=== PATIENT | female | born 1945 | race Caucasian/White ===

== ENCOUNTER 2018-07-01 13:01 | Observation (INO) | payer MEDICARE ==
[2018-07-01] MEDS ORDERED: ATORVASTATIN 40 MG TAB PO SCH (19:00)
[2018-07-01] MEDS ORDERED: NITROGLYCERIN SL TABS 0.4 MG TAB SUBLINGUAL PRN (19:00)
[2018-07-01] MEDS ORDERED: MELATONIN 5 MG TABLET PO PRN (19:01)
[2018-07-01] MEDS ORDERED: ACETAMINOPHEN TAB 325 MG TAB PO PRN (19:01)
[2018-07-01] MEDS: OXYMETAZOLINE 0.05% NASL SPRAY 1 SPRAY BOTTLE EA NOSTRIL SCH (20:21)
[2018-07-01] MEDS: amLODIPine 5 MG TAB PO SCH (20:40)
[2018-07-01] MEDS: CHOLECALCIFEROL 1,000 UNIT TAB PO SCH (20:40)
[2018-07-01] MEDS: FUROSEMIDE 20 MG TAB PO SCH (20:40)
[2018-07-01] MEDS: CARVEDILOL 12.5 MG TAB PO SCH (20:41)
[2018-07-01] MEDS: buPROPion XL 300 MG TAB.ER.24H PO SCH (20:41)
[2018-07-01 20:42] LABS: Basophils # (A) 0.1 k/uL (0-0.2); Basophils % (A) 1 %; Eosinophils # (A) 0.2 k/uL (0-0.7); Eosinophils % (A) 4 %; HCT 39.5 % (34.0-46.0); HGB 12.9 gm/dL (11.4-16.0); Lymphocytes # (A) 1.9 k/uL (1.0-4.8); Lymphocytes % (A) 33 %; MCH 29.7 pg (25.0-35.0); MCHC 32.6 g/dL (31.0-37.0); MCV 91.3 fL (80.0-100.0); Mean Platelet Volume 7.3; Monocytes # (A) 0.4 k/uL (0-1.0); Monocytes % (A) 8 %; Neutrophils # (A) 2.8 k/uL (1.3-7.7); Neutrophils % (A) 51 %; Platelet Count 175 k/uL (150-450); RBC 4.33 m/uL (3.80-5.40); RDW 14.2 % (11.5-15.5); WBC 5.6 k/uL (3.8-10.6)
[2018-07-01 20:54] LABS: INR 0.9 (<1.2); Prothrombin Time 10.2 sec (9.0-12.0)
[2018-07-01 21:26] LABS: Albumin 3.6 g/dL (3.5-5.0); Calcium 9.5 mg/dL (8.4-10.2); Magnesium 2.2 mg/dL (1.6-2.3); Potassium 4.3 mmol/L (3.5-5.1); Total Bilirubin 0.5 mg/dL (0.2-1.3); Total Protein 5.9 g/dL (6.3-8.2)
[2018-07-02] MEDS: LEVOTHYROXINE 100 MCG TAB PO SCH (06:07)
[2018-07-02] MEDS ORDERED: SODIUM CHLORIDE 0.9% 1,000 ML in EMPTY BAG 1 BAG IV ONE (08:13)
[2018-07-02] MEDS ORDERED: NITROGLYCERIN SL TABS 0.4 MG TAB SUBLINGUAL PRN (08:13)
[2018-07-02] MEDS ORDERED: ALPRAZolam 0.25 MG TAB PO PRN (08:13)
[2018-07-02] MEDS ORDERED: ALPRAZolam 0.5 MG TAB PO PRN (08:13)
[2018-07-02] MEDS ORDERED: ATORVASTATIN 80 MG TAB PO STA (08:16)
[2018-07-02] MEDS ORDERED: ASPIRIN 325 MG TAB PO STA (08:16)
[2018-07-02] MEDS: CHOLECALCIFEROL 1,000 UNIT TAB PO SCH (08:39)
[2018-07-02] MEDS: CARVEDILOL 12.5 MG TAB PO SCH (08:40)
[2018-07-02] MEDS: buPROPion XL 300 MG TAB.ER.24H PO SCH (08:41)
[2018-07-02] MEDS: FUROSEMIDE 20 MG TAB PO SCH (08:41)
[2018-07-02] MEDS: SODIUM CHLORIDE 0.9% 1,000 ML IV SCH ×2 (08:41→22:18)
--- NOTE | 2018-07-02 09:09 | CONS ---
CONSULTATION CHIEF COMPLAINT: Chest pain. Lali Rehman is a 72-year-old lady with history of cardiomyopathy, congestive heart failure, valvular heart disease and AICD who I see regularly in the outpatient setting. Comes in complaining of precordial chest pain that radiated to her back. She has valvular heart disease and is supposed to undergo a transesophageal echo later this week. She has mild to moderate intensity chest pain at rest without diaphoresis or shortness of breath. The pain has gradually resolved. Her EKG shows sinus rhythm with nonspecific ST-T wave changes and cardiac enzymes have been negative. We have never been able to get hold of her outpatient records. She has chronic renal insufficiency. Given the symptoms suggestive of unstable angina, I advised the patient to undergo cardiac catheterization. I am going to hydrate her prior to the cath. Patient will also undergo a transesophageal echo to evaluate the valvular heart disease. PAST MEDICAL HISTORY: Significant for cardiomyopathy with congestive heart failure, dyslipidemia, AICD, and coronary artery disease. CURRENT MEDICATIONS: Include Wellbutrin 300 mg daily, Norvasc 5 q. daily, levothyroxine, Lasix 20 mg daily, vitamin D, carvedilol, calcitriol and Lipitor. Patient is allergic to CODEINE and SULFA. FAMILY HISTORY: Negative for premature coronary artery disease. SOCIAL HISTORY: Negative for current smoking, EtOH abuse, or drug abuse. REVIEW OF SYSTEMS: HEENT: Unremarkable. CARDIAC: As described above. RESPIRATORY: Negative. GI: Negative. GENITOURINARY: Negative. ALLERGY/IMMUNOLOGY: Negative. SKIN: Negative. MUSCULOSKELETAL: Significant for arthritis. PSYCHOSOCIAL: Negative. ENDOCRINE: Negative. CONSTITUTIONAL: Negative. ONCOLOGICAL: Negative Rest of the system review is not relevant. PHYSICAL EXAMINATION: On exam, patient is comfortable at rest. Afebrile. Vital signs are stable. There is no jugular venous distention. Carotid upstroke is normal. There is no bruit. Chest exam reveals good air entry bilaterally. Heart exam reveals first and second heart sounds and a systolic murmur at the apex. Abdomen is soft. Exam of extremities did not reveal any edema. Peripheral pulses are felt. LABS: Show that the BUN is 27, creatinine is 1.3. Potassium is 4.3. Troponin is 0.012, hemoglobin is 12.9, platelet count is 175. ASSESSMENT AND PLAN: 1. Unstable angina. 2. Mitral regurgitation. 3. Aortic regurgitation. 4. Cardiomyopathy. 5. Renal insufficiency. PLAN: I am going to hydrate her. I advised her to undergo cardiac catheterization. She understands risks, benefits. She will also undergo a transesophageal echo. NIDHI / DYANAN: [id number] /
[2018-07-02] MEDS ORDERED: CALCITRIOL 0.25 MCG CAP PO SCH (12:00)
[2018-07-02] MEDS: amLODIPine 5 MG TAB PO SCH (14:29)
--- NOTE | 2018-07-02 17:11 | P.HPIM ---
History of Present Illness H&P Date: 07/02/18 Chief Complaint: Chest pain Mrs. Rehman is a 72-year-old female with a past medical history of congestive heart failure, valvular heart disease, AICD, CK D stage III transferred from [facility] for ongoing chest pain. Patient states that she took a shower and was blow drying head when she felt a squeezing type of chest pain in the precordial area. The patient states that the pain radiated to her upper neck and jaw area. Associated with mild diaphoresis and she also felt dizzy at that point of time. So the patient went to [facility], from days she has been transferred to [facility], as has used car make ready worker Dr. Rowe is here. Currently the patient is chest pain-free. She had EKG showing nonspecific ST-T wave changes and her troponins have been negative. She mentions that Dr. Rowe has a plan to do a JOSHUA, to evaluate her valvular heart disease, she was scheduled to get back this Monday. Patient denies having any orthopnea or PND. At baseline she can walk a flight of stairs, without getting short of breath. She denies having any fevers chills or rigors. No cough or difficulty in breathing. No abdominal pain nausea vomiting or diarrhea. No dysuria or hematuria. No loss of consciousness. No headaches, no blurring of vision, no neck stiffness. No weakness of her extremities. No recent travel. Review of systems are negative except for mentioned above. Past Medical History Past Medical History: Heart Failure, Renal Disease Additional Past Medical History / Comment(s): Hiatal Hernia, CKD III, History of Any Multi-Drug Resistant Organisms: None Reported Past Surgical History: Pacemaker Past Anesthesia/Blood Transfusion Reactions: No Reported Reaction Type of Cardiac Device: Permanent Pacemaker Device Placement Date:: 2008 Past Psychological History: Bipolar Smoking Status: Never smoker - Past Family History Father Family Medical History: Cancer Additional Family Medical History / Comment(s): Lung CA, pacemaker. Mother Family Medical History: Cancer, Hyperlipidemia Additional Family Medical History / Comment(s): Colon CA, Pacemaker Medications and Allergies Home Medications Medication Instructions Recorded Confirmed Type Atorvastatin [Lipitor] 40 mg PO DAILY 07/01/18 07/01/18 History Calcitriol 0.5 mcg PO MO 07/01/18 07/01/18 History Carvedilol 50 mg PO DAILY 07/01/18 07/01/18 History Cholecalciferol [Vitamin D3 (25 5,000 unit PO DAILY 07/01/18 07/01/18 History Mcg = 1000 Iu)] Furosemide [Lasix] 20 mg PO DAILY 07/01/18 07/01/18 History Levothyroxine Sodium 100 mcg PO DAILY 07/01/18 07/01/18 History Oxymetazoline 0.05% Nasl [place] 2 spray EA NOSTRIL HS 07/01/18 07/01/18 History [Afrin 0.05% Nasal [place]] amLODIPine [Norvasc] 5 mg PO DAILY 07/01/18 07/01/18 History buPROPion XL [Wellbutrin XL] 300 mg PO DAILY 07/01/18 07/01/18 History Allergies Allergy/AdvReac Type Severity Reaction Status Date / Time codeine Allergy Itching Verified 07/01/18 16:37 Sulfa (Sulfonamide Allergy Itching Verified 07/01/18 16:37 Antibiotics) Physical Exam Vitals: Vital Signs Temp Pulse Resp BP BP Pulse Ox 07/02/18 16:00 98.3 F 60 16 139/82 96 07/02/18 11:59 60 18 07/02/18 11:30 98.4 F 60 18 119/79 97 07/02/18 08:00 60 18 07/02/18 07:00 97.8 F 60 18 112/72 97 07/02/18 04:00 97.6 F 60 15 103/76 97 07/02/18 00:00 97.7 F 60 15 113/72 98 07/01/18 20:00 60 15 07/01/18 19:02 98.3 F 60 15 135/76 97 Intake and Output 07/02/18 07/02/18 07/02/18 06:59 14:59 22:59 Intake Total 240 Balance 240 Intake: Oral 240 Other: Voiding Method Toilet Toilet Toilet # Voids 1 - GEN. APPEARANCE: alert, in no apparent distress HEENT - no pallor. No icterus. NECK EXAM: normal inspection. Absent: tenderness, meningismus, full ROM, lymphadenopathy RESPIRATORY EXAM: Bilateral breath sounds are positive. No wheeze or crackles. CARDIOVASCULAR EXAM: Diastolic murmur heard. S1 and S2 heard. GI/ABDOMINAL EXAM: soft, normal bowel sounds. Absent: distended, tenderness, guarding, rebound, rigid EXTREMITIES EXAM: No edema. NEUROLOGICAL EXAM: alert, oriented X3, no focal deficits. PSYCHIATRIC EXAM: normal affect, normal mood SKIN EXAM: warm, dry, intact, normal color. Absent: rash Results CBC & Chem 7: 07/01/18 20:29 07/01/18 20:29 Labs: Abnormal Lab Results - Last 24 Hours (Table) 07/01/18 Range/Units 20:29 Carbon Dioxide 31 H (22-30) mmol/L BUN 27 H (7-17) mg/dL Creatinine 1.39 H (0.52-1.04) mg/dL Total Protein 5.9 L (6.3-8.2) g/dL Thrombosis Risk Factor Assmnt - Choose All That Apply Each Risk Factor Represents 2 Points: Age 61-74 years Thrombosis Risk Factor Assessment Total Risk Factor Score: 2 Thrombosis Risk Factor Assessment Level: Low Risk Assessment and Plan Assessment: ASSESSMENT Unstable angina Congestive heart failure- unknown whether systolic or diastolic Valvular heart disease CK D stage III PLAN: Patient is currently chest pain-free. Had EKG and troponins within normal limits. Dr. Rowe evaluated the patient and she is scheduled for a cardiac cath and a JOSHUA or tomorrow. Patient has been started on IV fluids, in preparation for her Tomorrow, due to her chronic kidney disease. The treatment plan was discussed in detail with the patient. Further recommendations to follow depending on the progress of the patient.
[2018-07-02] MEDS: OXYMETAZOLINE 0.05% NASL SPRAY 1 SPRAY BOTTLE EA NOSTRIL SCH (20:01)
[2018-07-03] MEDS: LEVOTHYROXINE 100 MCG TAB PO SCH (05:52)
[2018-07-03] MEDS: CARVEDILOL 12.5 MG TAB PO SCH (07:51)
[2018-07-03] MEDS: amLODIPine 5 MG TAB PO SCH (07:51)
[2018-07-03] MEDS: buPROPion XL 300 MG TAB.ER.24H PO SCH (07:51)
[2018-07-03] MEDS: ATORVASTATIN 40 MG TAB PO SCH (07:51)
[2018-07-03] MEDS: CHOLECALCIFEROL 1,000 UNIT TAB PO SCH (07:52)
[2018-07-03] MEDS: FUROSEMIDE 20 MG TAB PO SCH (07:52)
[2018-07-03] MEDS ORDERED: ASPIRIN 325 MG TAB PO STA (08:42)
[2018-07-03] MEDS ORDERED: BENZOCAINE SPRAY 1 CAN MUCOUS MEM ONE ×2 (10:45→10:50)
[2018-07-03] MEDS ORDERED: IV FLUID CONTINUATION 1,000 ML IV ONE ×2 (10:51→12:05)
[2018-07-03] MEDS ORDERED: MIDAZOLAM (PF) 2 MG/2 ML VIAL IVP ONE (10:57)
[2018-07-03] MEDS ORDERED: fentaNYL (PF) 50 MCG/ML 2 ML AMP IVP ONE (11:00)
[2018-07-03] MEDS ORDERED: LIDOCAINE 1% INJ 10MG/ML (20 ML MDV) SQ ONE (11:52)
[2018-07-03] MEDS ORDERED: IOPAMIDOL-370 125ML BTL INJ ONE (12:04)
[2018-07-03] MEDS ORDERED: RX INFO: IV CONTRAST WAS GIVEN 1 EACH MISC MISCELLANE PRN (12:18)
[2018-07-03] MEDS: SODIUM CHLORIDE 0.9% 1,000 ML IV SCH (12:36)
--- NOTE | 2018-07-03 13:29 | P.PN ---
Subjective Mrs. Rehman is a 72-year-old female with a past medical history of congestive heart failure, valvular heart disease, AICD, CK D stage III transferred from [facility] for ongoing chest pain. Patient states that she took a shower and was blow drying head when she felt a squeezing type of chest pain in the precordial area. The patient states that the pain radiated to her upper neck and jaw area. Associated with mild diaphoresis and she also felt dizzy at that point of time. 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 Currently the patient is chest pain-free. She had EKG showing nonspecific ST-T wave changes and her troponins have been negative. She mentions that Dr. Rowe has a plan to do a JOSHUA, to evaluate her valvular heart disease, she was scheduled to get back this Monday. Patient denies having any orthopnea or PND. At baseline she can walk a flight of stairs, without getting short of breath. She denies having any fevers chills or rigors. No cough or difficulty in breathing. No abdominal pain nausea vomiting or diarrhea. No dysuria or hematuria. No loss of consciousness. No headaches, no blurring of vision, no neck stiffness. No weakness of her extremities. No recent travel. subjective 07/03/2018 pt had cardiac catheterization today , which was unremarkable, JOSHUA could not be done , but cardiology team will able to look at her valves during cardiac cath which were unremarkable. Patient after the procedure she was lying in bed comfortable, fully awake and oriented. No chest pain or dyspnea. Her right groin cath site looks stable with no hematoma and the wound is small. She still feels generalized fatigue. at bedside. Patient has history of. Total hernia and she follow up with Dr. Reyes her PCP. Patient told me earlier this year she had scoped for upper GI which showed reflux disease and he is still hernia as per patient. patient and were instructed to follow up with her PCP and GI upon discharge and they agree . Objective - Vital Signs Vital signs: Vital Signs Temp 97.5 F L 07/03/18 12:30 Pulse 60 07/03/18 12:30 Resp 18 07/03/18 12:30 BP 151/70 07/03/18 12:30 Pulse Ox 100 07/03/18 12:30 Intake & Output 07/02/18 07/03/18 07/03/18 18:59 06:59 18:59 Intake Total 150 Balance 150 Intake: IV 150 Other: Voiding Method Toilet Toilet Toilet # Voids 1 - Exam GENERAL: The patient is alert and oriented x3, not in any acute distress. Well developed, well nourished. HEENT: Pupils are round and equally reacting to light. EOMI. No scleral icterus. No conjunctival pallor. Normocephalic, atraumatic. No pharyngeal erythema. No thyromegaly. CARDIOVASCULAR: S1 and S2 present. No murmurs, rubs, or gallops. PULMONARY: Chest is clear to auscultation, no wheezing or crackles. ABDOMEN: Soft, nontender, nondistended, normoactive bowel sounds. No palpable organomegaly. MUSCULOSKELETAL: No joint swelling or deformity. -EXTREMITIES: No cyanosis, clubbing, or pedal edema. Right groin wound is healing with no cellulitis or hematoma NEUROLOGICAL: Gross neurological examination did not reveal any focal deficits. SKIN: No rashes. - Labs CBC & Chem 7: 07/01/18 20:29 07/01/18 20:29 Assessment and Plan Assessment: -Chest pain. Cardiology team evaluated the patient. Patient has unremarkable cardiac cath for primary results, final result is pending -History of hiatal hernia and gastroesophageal reflux disease -History of Congestive heart failure- unknown whether systolic or diastolic Valvular heart disease -CKD stage III DVT prophylaxis: Heparin GI prophylaxis: Protonix
[2018-07-03] MEDS: PANTOPRAZOLE 40 MG/10 ML VIAL IVP SCH (14:00)
--- NOTE | 2018-07-03 17:36 | ECHOT ---
TRANSESOPHAGEAL ECHOCARDIOGRAM TRANSESOPHAGEAL ECHOCARDIOGRAM: INDICATION: Mitral and aortic regurgitation. PROCEDURE NOTE: After obtaining informed consent, transesophageal echocardiogram was attempted in left lateral position. Patient received moderate conscious sedation. Total sedation time was 10 minutes. The patient received 3 mg of Versed and some fentanyl. We were unsuccessful with the procedure, as we could not intubate the patient. MMODLina / IJN: [id number] /
--- NOTE | 2018-07-03 17:36 | CC ---
CARDIAC CATHETERIZATION REPORT INDICATION: Unstable angina. PROCEDURE NOTE: After obtaining informed consent, left heart catheterization, coronary angiogram, left ventriculogram and aortogram were performed. The patient tolerated the procedure well without any obvious immediate complications. The patient has renal insufficiency, but we were able to stay within her contrast threshold. FINDINGS: 1. HEMODYNAMICS: Left ventricular end-diastolic pressure is 8 to 12 mm. There is no significant gradient across the aortic valve. 2. LEFT VENTRICULOGRAM: Left ventriculogram was performed in CHAVEZ position and shows mildly enlarged left ventricle with mild LV dysfunction with an ejection fraction of 50%. There was 1+ mitral regurgitation noted. 3. AORTOGRAM: Aortogram was performed in right lateral position and shows 2+ aortic regurgitation. Aortic root appears normal. ANGIOGRAPHIC DATA: 1. LEFT MAIN CORONARY ARTERY: Left main coronary artery is a normal-sized vessel and is free of stenosis. It divides into left anterior descending coronary artery and circumflex coronary artery. LAD and its branches, circumflex coronary artery and its branches are free of significant stenosis. 2. RIGHT CORONARY ARTERY: Dominant vessel. It is free of significant disease. CONCLUSIONS: 1. Normal coronary arteries. 2. Preserved LV function. 3. Mild to moderate mitral and moderate aortic regurgitation. PLAN: I reviewed angiographic data with the patient and advised her to continue on medical therapy. MMODL / IJN: [id number] /
[2018-07-03] MEDS: HEPARIN SODIUM,PORCINE 5,000 UNIT/ML 1 ML VIAL SQ SCH (20:30)
[2018-07-03] MEDS: OXYMETAZOLINE 0.05% NASL SPRAY 1 SPRAY BOTTLE EA NOSTRIL SCH (20:30)
[2018-07-04] MEDS: SODIUM CHLORIDE 0.9% 1,000 ML IV SCH (03:28)
[2018-07-04] MEDS: LEVOTHYROXINE 100 MCG TAB PO SCH (06:14)
[2018-07-04] MEDS: FUROSEMIDE 20 MG TAB PO SCH (09:38)
[2018-07-04] MEDS: CHOLECALCIFEROL 1,000 UNIT TAB PO SCH (09:38)
[2018-07-04] MEDS: ATORVASTATIN 40 MG TAB PO SCH (09:38)
[2018-07-04] MEDS: HEPARIN SODIUM,PORCINE 5,000 UNIT/ML 1 ML VIAL SQ SCH (09:38)
[2018-07-04] MEDS: PANTOPRAZOLE 40 MG/10 ML VIAL IVP SCH (09:38)
[2018-07-04] MEDS: amLODIPine 5 MG TAB PO SCH (09:38)
[2018-07-04] MEDS: CARVEDILOL 12.5 MG TAB PO SCH (09:38)
[2018-07-04] MEDS: buPROPion XL 300 MG TAB.ER.24H PO SCH (09:54)
[2018-07-04 11:44] VITALS: BP 141/84; PULSE 59; RESP 15; TEMP 98.5
== END 2018-07-04 12:08 | disposition home or self-care (01) ==
LOC: MERGE 15:24 → 1SOBS 15:24
PROVIDERS: ADMIT Internal Medicine; ATTEND Internal Medicine
DX: R07.89 Other chest pain (principal); E78.5 Hyperlipidemia, unspecified; I42.9 Cardiomyopathy, unspecified; K21.9 Gastro-esophageal reflux disease without esophagitis; K44.9 Diaphragmatic hernia without obstruction or gangrene; I50.9 Heart failure, unspecified; R42 Dizziness and giddiness; F31.9 Bipolar disorder, unspecified; N18.3 Chronic kidney disease, stage 3 (moderate); I08.0 Rheumatic disorders of both mitral and aortic valves; Z79.890 Hormone replacement therapy; Z79.899 Other long term (current) drug therapy; Z88.5 Allergy status to narcotic agent; Z88.2 Allergy status to sulfonamides; Z80.0 Family history of malignant neoplasm of digestive organs; Z80.1 Family history of malignant neoplasm of trachea, bronchus and lung
CPT/HCPCS: 93458; 93567; 80053; 82150; 83690; 83735; 84484; 85025; 85610; 85730; G0378 ×4; G0379; C1760; C1894; C1769; J1644 ×2; J2001; J3010; C9113; Q9967; J2250

== ENCOUNTER 2018-08-21 11:45 | Day surgery (SDC) | payer MEDICARE ==
[2018-08-21] MEDS ORDERED: LACTATED RINGERS 1,000 ML IV SCH (12:21)
[2018-08-21 12:33] VITALS: TEMP 98.3
[2018-08-21] MEDS ORDERED: LIDOCAINE 1% 20 ML VIAL (10MG/ML) FOR IV START INTRADERMA ONE (12:43)
[2018-08-21] MEDS ORDERED: PROPOFOL 10 MG/ML 20 ML VIAL IV ONE (13:43)
--- NOTE | 2018-08-21 14:24 | P.PCN ---
Date of Procedure: 08/21/18 Description of Procedure: BRIEF HISTORY: Pleasant 72-year-old female with a medical history significant for gastroesophageal reflux disease as well as a surgical history significant for gastric stapling who presents for evaluation of atypical chest pain/esophageal spasm and GERD. The patient reports multiple episodes of chest pain resulting ER visits. Cardiac workup has been negative to date. PROCEDURE PERFORMED: Esophagogastroduodenoscopy with biopsy. PREOPERATIVE DIAGNOSIS: Gastroesophageal reflux symptoms and intermittent dysphagia to solids. IV sedation per anesthesia. PROCEDURE: After informed consent was obtained, the patient was brought into the endoscopy unit. IV conscious sedation was administered by Anesthesia under continuous monitoring. Initially the Olympus GIF-140 video endoscope was inserted into the mouth. Esophagus intubated without any difficulty. It was gradually advanced into the stomach and there was evidence of previous gastric stapling surgery noted. The gastric pouch appeared normal. The scope was advanced into the antrum and duodenum and carefully examined. The bulb and the second part of the duodenum appeared normal. The scope at this time was withdrawn to the stomach, adequately insufflated with air, and upon careful examination, mucosa of the antrum, body, cardia and the fundus appeared normal. The scope was withdrawn to the gastric pouch and retroflexion was performed which appeared normal. The scope was then withdrawn into the esophagus. The GE junction was located at 39 cm from the incisors. The esophagus appeared normal. There were no erosions or ulcerations seen, no evidence of esophageal stricture and the patient tolerated the procedure well. IMPRESSION: 1. Evidence of gastric stapling surgery and normal gastric pouch. 2. Mild antral gastritis. 3. Normal-appearing esophagus with no evidence of esophageal stricture or esop hagitis. RECOMMENDATIONS: The findings of this examination were discussed with the patient as well as her family. She was advised to continue with Prilosec 20 mg daily and follow and reflux measures.
[2018-08-21 14:43] VITALS: BP 159/89; PULSE 78; RESP 18
== END 2018-08-21 15:00 | disposition home or self-care (01) ==
LOC: ORWHC2ENDO 11:45
PROVIDERS: ATTEND Internal Medicine
DX: K29.50 Unspecified chronic gastritis without bleeding (principal); K44.9 Diaphragmatic hernia without obstruction or gangrene; R13.10 Dysphagia, unspecified; K21.9 Gastro-esophageal reflux disease without esophagitis; Z87.891 Personal history of nicotine dependence; Z80.1 Family history of malignant neoplasm of trachea, bronchus and lung; Z98.84 Bariatric surgery status; Z95.810 Presence of automatic (implantable) cardiac defibrillator; I10 Essential (primary) hypertension; E78.5 Hyperlipidemia, unspecified; E07.9 Disorder of thyroid, unspecified; Z90.49 Acquired absence of other specified parts of digestive tract; Z90.710 Acquired absence of both cervix and uterus; Z79.82 Long term (current) use of aspirin; Z79.890 Hormone replacement therapy; Z79.899 Other long term (current) drug therapy; Z88.5 Allergy status to narcotic agent; Z88.2 Allergy status to sulfonamides
CPT/HCPCS: 88305; 43239; J2704

== ENCOUNTER 2024-05-06 12:57 | Day surgery (SDC) | payer MEDICARE ==
[2024-05-06 13:46] LABS: Basophils # (A) 0.1 k/uL (0-0.2); Basophils % (A) 1 %; Eosinophils # (A) 0.4 k/uL (0-0.7); Eosinophils % (A) 4 %; HCT 43.7 % (34.0-46.0); HGB 13.8 gm/dL (11.4-16.0); Hypochromasia Slight; Lymphocytes # (A) 1.9 k/uL (1.0-4.8); Lymphocytes % (A) 21 %; MCH 29.3 pg (25.0-35.0); MCHC 31.6 g/dL (31.0-37.0); MCV 92.7 fL (80.0-100.0); Mean Platelet Volume 7.7; Monocytes # (A) 0.5 k/uL (0-1.0); Monocytes % (A) 6 %; Neutrophils % (A) 66 %; Platelet Count 235 k/uL (150-450); RBC 4.72 m/uL (3.80-5.40); WBC 9.1 k/uL (3.8-10.6)
[2024-05-06] MEDS: SODIUM CHLORIDE 0.9% 1,000 ML IV SCH ×2 (13:49→20:42)
[2024-05-06] MEDS: IV FLUID CONTINUATION 1,000 ML IV ONE (13:53)
[2024-05-06 13:55] LABS: African American GFR (CKD) 38 (>60 ml/min/1.73 sqM); Anion Gap 10 mmol/L; Blood Urea Nitrogen 33 mg/dL (7-17); Carbon Dioxide 27 mmol/L (22-30); Chloride 103 mmol/L (98-107); Glucose 117 mg/dL (74-99); Non-African American GFR(CKD) 33 (>60 ml/min/1.73 sqM); Potassium 4.7 mmol/L (3.5-5.1); Sodium 140 mmol/L (137-145)
[2024-05-06] MEDS ORDERED: fentaNYL (PF) 50 MCG/ML 2 ML AMP ONE (18:05)
[2024-05-06] MEDS ORDERED: FUROSEMIDE 10 MG/ML 2 ML VIAL ONE (18:05)
[2024-05-06] MEDS ORDERED: MIDAZOLAM 2 MG/2 ML VIAL ONE (18:05)
[2024-05-06] MEDS: ceFAZolin 1 GM in SODIUM CHLORIDE 0.9% IRRIG BTL 250 ML IRRIGATION PRN (18:45)
[2024-05-06] MEDS ORDERED: VANCOMYCIN IV PER PHARMACY 1 EACH MISC MISCELLANE PRN (18:49)
[2024-05-06] MEDS: LIDOCAINE 1% INJ 10MG/ML (20 ML MDV) SQ ONE ×2 (18:50→19:11)
[2024-05-06] MEDS: ROPIVACAINE 5 MG/ML 30 ML VIAL MISCELLANE ONE (18:52)
[2024-05-06] MEDS: VANCOMYCIN 1,500 MG in SODIUM CHLORIDE 0.9% 500 ML 500 ML IVPB ONE (19:09)
[2024-05-06] MEDS ORDERED: ACETAMINOPHEN TAB 325 MG TAB PO PRN (19:50)
[2024-05-06] MEDS ORDERED: FUROSEMIDE 20 MG TAB PO PRN (19:51)
--- NOTE | 2024-05-06 19:58 | P.EPPROC ---
- EP Procedure Note Electrophysiology Procedure Note: Extended procedure duration This BiV ICD generator change was a long procedure on account of the second generator change being performed in this patient. Her 3 leads were coiled wrapped in scar tissue which was very carefully dissected of the leads taking care not to damage the leads. In addition the original pocket was subcutaneous resulting in a very thick capsule. A new subfascial pocket was made at the level of the pectoralis muscle, just superficial to it. This pocket was then extended cephalad to accommodate the new Lewis BiV ICD generator. The device and secured with underlying pectoralis fascia Cinefluoroscopy revealed an atrial lead screwed in the right atrial appendage. RV lead in the RV apex and a bipolar LV lead in the base of the anterolateral vein chronically No fractures or breaks noted
--- NOTE | 2024-05-06 20:03 | P.EPPROC ---
- EP Procedure Note Electrophysiology Procedure Note: Diagnosis Cardiomyopathy, chronic, nonischemic cardiomyopathy Congestive heart failure [place] [employer] class class II-III Underlying bradycardia with heart rates less than 40 beats a minute, pacemaker dependent On guide line directed medical treatment for greater than 3 months Procedure: Biventricular ICD generator change, device at DUSTY Result: Successful biventricular ICD generator change Chronic atrial lead: Pacing threshold 1.5 V at 0.5 ms, P waves 4.2 mV and pacing impedance 600 ohms Chronic RV ICD lead: Pacing threshold 1 V at 0.5 ms, R waves greater than 12 mV and pacing impedance 510 ohms Chronic bipolar left ventricular lead: 2.5 V at 1 ms, LV tip to RV coil, pacing impedance 430 ohms High-voltage impedance 79 ohms Procedure details: Patient was brought to the EP lab in a fasting state. Written informed consent was obtained prior to the procedure. Options, pros and cons, benefits and risks and complications discussed with patient in detail prior to the procedure (shared decision making) previously. Importance of continuing medical treatment emphasized previously. Alternatives discussed previously. The left pectoral area was prepped and draped as a protocol. IV antibiotics administered 1% lidocaine was used for local anesthesia. A 4 cm incision was made parallel to the deltopectoral groove, about 1.5 cm medial to it. The incision was carried down to the level of the pectoralis muscle and the subfascial pocket was made. Please see separate report for new subfascial pocket/extended procedure duration New BiV ICD implanted, [employer]ura 335 7-40 C, CULINARY DIRECTOR-D, Lewis New BiV ICD secured to the underlying pectoral muscle after removing sheaths . Pocket irrigated with antibiotic solution. Antibiotic pouch placed Leads connected to the biventricular ICD generator. Wound closed in 3 layers and dressed per protocol Biventricular ICD interrogated and programmed. Appropriate pacing parameters, antitachycardia therapies with antitachycardia pacing cardioversion defibrillations programmed. AV delay and biventricular pacing parameters programmed to achieve optimal physiologic pacing Patient tolerated the procedure well without any acute complications. See scanned device report in EMR for lead details
[2024-05-06] MEDS: LACTATED RINGERS 1,000 ML IV SCH (20:41)
[2024-05-06] MEDS: METOPROLOL SUCCINATE (ER) 100 MG TAB.ER.24H PO SCH (21:15)
[2024-05-06] MEDS: OXYMETAZOLINE 0.05% NASL SPRAY 1 SPRAY BOTTLE NASAL STA (21:15)
[2024-05-06] MEDS: ACETAMINOPHEN IV (For NPO) 1,000 MG in EMPTY BAG 1 BAG IVPB ONE (21:16)
[2024-05-07] MEDS: LEVOTHYROXINE 125 MCG TAB PO SCH (06:13)
[2024-05-07] MEDS: ATORVASTATIN 40 MG TAB PO SCH (08:06)
[2024-05-07] MEDS: LOSARTAN 50 MG TAB PO SCH (08:06)
[2024-05-07] MEDS: PANTOPRAZOLE 40 MG TABLET PO SCH (08:06)
[2024-05-07] MEDS: ASPIRIN 81 MG PO SCH (08:06)
[2024-05-07 08:39] VITALS: BP 157/84; PULSE 62; RESP 17; TEMP 98
== END 2024-05-07 10:20 | disposition home or self-care (01) ==
LOC: CATHEP 12:57 → 6NMEDSUR 18:30 → CATHEP 05-07 10:20
PROVIDERS: ATTEND Internal Medicine Clinical Cardiac Electrophysiology
DX: Z45.02 Encounter for adjustment and management of automatic implantable cardiac defibrillator (principal); I42.0 Dilated cardiomyopathy; I50.22 Chronic systolic (congestive) heart failure; I11.0 Hypertensive heart disease with heart failure; E03.9 Hypothyroidism, unspecified; E78.5 Hyperlipidemia, unspecified; I34.0 Nonrheumatic mitral (valve) insufficiency; Z95.810 Presence of automatic (implantable) cardiac defibrillator; Z79.82 Long term (current) use of aspirin; Z79.890 Hormone replacement therapy; Z88.5 Allergy status to narcotic agent; Z88.2 Allergy status to sulfonamides
CPT/HCPCS: 33264; 80048; 85025; C1882; J3370; J0690 ×2; J2003; J2795; J0131